=== PATIENT | female | born 1975 | race Caucasian/White ===

== ENCOUNTER → 2018-09-03 19:33 | Outpatient (REF) | payer OTHER, MEDICAID, SELFPAY | LOC: LAB 19:33 | PROVIDERS: Visit Provider Physician Assistant Medical | DX: D48.5 Neoplasm of uncertain behavior of skin (principal) | CPT/HCPCS: 88305 ==

== ENCOUNTER → 2020-07-27 12:54 | Outpatient (CLI) | payer OTHER, MEDICAID, SELFPAY ==
[2020-07-27 14:26] LABS: COVID19 -Nasal RAPID Negative (Negative)
== END ==
PROVIDERS: Visit Provider Family Medicine Sleep Medicine
DX: Z20.822 Contact with and (suspected) exposure to COVID-19 (principal)
CPT/HCPCS: 87635; C9803

== ENCOUNTER → 2020-08-03 14:21 | Outpatient (CLI) | payer OTHER, MEDICAID, SELFPAY ==
[2020-08-03 17:15] LABS: COVID19 -Nasal RAPID Negative (Negative)
== END ==
PROVIDERS: PCP Family Medicine; Visit Provider Family Medicine Sleep Medicine
DX: Z20.822 Contact with and (suspected) exposure to COVID-19 (principal)
CPT/HCPCS: 87635; C9803

== ENCOUNTER → 2023-05-09 14:54 | Outpatient (CLI) | payer OTHER, MEDICAID, SELFPAY ==
--- NOTE | 2023-05-09 | DI.MRI.S_ITS ---
PROCEDURE: MR HEAD/BRAIN WO/W CON INDICATIONS: Dizziness and giddiness TECHNIQUE: Noncontrast axial T1 spin echo, axial T2 fast spin echo, sagittal and axial FLAIR, coronal T2 fast spin echo, axial gradient echo, axial diffusion and ADC through the brain. After the administration of contrast, axial and coronal and sagittal 3D VIBE or T1 spin echo with fat saturation through the brain. COMPARISON: None. FINDINGS: Image quality: Excellent. CSF Spaces: Basal cisterns are patent. No extra-axial fluid collections. Ventricles are normal in size and shape. Brain: No midline shift. No intracranial bleeds or masses. No abnormal intracranial enhancement. The brainstem appears normal. Diffusion-weighted images demonstrate no acute ischemic insults. No chronic ischemic insults. Normal intravascular flow voids are present. Skull and face: Calvarial marrow is normal in signal. Orbits appear normal. Sinuses: Sinuses and mastoids appear clear. IMPRESSION: Normal MRI of the brain with and without contrast Approved by: Carlos Kowalski M.D. on 05/09/2023 at 16:42
== END ==
PROVIDERS: PCP Physician Assistant Medical; Referring Provider Physician Assistant Medical; Visit Provider Physician Assistant Medical
DX: H50 Other strabismus (principal); R42 Dizziness and giddiness
CPT/HCPCS: 70553

== ENCOUNTER → 2024-02-18 11:47 | Outpatient (CLI) | payer OTHER, SELFPAY ==
--- NOTE | 2024-02-18 11:49 | DI.MRI.S_ITS ---
PROCEDURE: MR CERVICAL SPINE WO CON INDICATIONS: HEADACHE / SPINAL STENOSIS TECHNIQUE: Noncontrast sagittal T1 spin echo and T2 fast spin echo, sagittal STIR, foraminal oblique sagittal T2 fast spin echo, and axial gradient echo or T2 fast spin echo through the cervical spine. COMPARISON: None. FINDINGS: Image quality: Excellent. Alignment and Curvature: There is normal bony alignment. Bone Marrow: Marrow demonstrates normal overall signal. Spinal Cord: Visualized spinal cord has normal size and signal. No cerebellar tonsillar herniation. Paraspinous Soft Tissues: No paravertebral masses. Prevertebral soft tissues are normal in thickness. C2-C3: No canal stenosis or foraminal stenosis. C3-C4: No canal stenosis or foraminal stenosis. C4-C5: Mild left facet hypertrophy. No canal stenosis. [id number] left foraminal stenosis. C5-C6: No canal stenosis. Mild left facet hypertrophy. Mild left foraminal narrowing. C6-C7: No canal stenosis or foraminal stenosis. Mild left facet hypertrophy. C7-T1: Normal appearance. IMPRESSION: 1. Mild cervical spondylosis with multilevel left facet arthropathy. 2. No canal stenosis. No foraminal nerve root impingement. Dictated by: Henrik Crisostomo M.D. on 02/18/2024 at 16:04 Approved by: Henrik Crisostomo M.D. on 02/18/2024 at 16:10
--- NOTE | 2024-02-18 11:49 | DI.MRI.S_ITS ---
PROCEDURE: MR HEAD/BRAIN WO/W CON INDICATIONS: HEADACHE / SPINAL STENOSIS TECHNIQUE: Noncontrast axial T1 spin echo, axial T2 fast spin echo, sagittal and axial FLAIR, coronal T2 fast spin echo, axial gradient echo, axial diffusion and ADC through the brain. After the administration of contrast, axial and coronal and sagittal 3D VIBE or T1 spin echo with fat saturation through the brain. COMPARISON: [facility], MR, MR HEAD/BRAIN WO/W CON, 05/09/2023, 15:44. FINDINGS: Image quality: Diagnostic, with note made of motion artifact. CSF Spaces: Basal cisterns are patent. No extra-axial fluid collections. Ventricles are normal in size and shape. Brain: No midline shift. No intracranial bleeds or masses. No abnormal intracranial enhancement. The brainstem appears normal. Diffusion-weighted images demonstrate no acute infarct. No chronic ischemic insults. Normal intravascular flow voids are present. Skull and face: Calvarial marrow is normal in signal. Orbits appear normal. Sinuses: Sinuses and mastoids appear clear. IMPRESSION: Normal brain MRI, stable from prior. No masses or abnormal enhancement can be seen. Dictated by: Blue Dockery M.D. on 02/18/2024 at 12:44 Approved by: Blue Dockery M.D. on 02/18/2024 at 12:45
== END ==
PROVIDERS: PCP Student in an Organized Health Care Education/Training Program; Referring Provider Psychiatry & Neurology Neurology; Visit Provider Psychiatry & Neurology Neurology
DX: M48.02 Spinal stenosis, cervical region; R51.9 Headache, unspecified; M47.812 Spondylosis without myelopathy or radiculopathy, cervical region
CPT/HCPCS: 70553; 72141; A9579

== ENCOUNTER → 2025-03-27 09:55 | Outpatient (CLI) | payer OTHER, SELFPAY ==
--- NOTE | 2025-03-27 09:56 | DI.MRI.S_ITS ---
PROCEDURE: MR CERVICAL SPINE WO CON INDICATIONS: Cervicalgia TECHNIQUE: Noncontrast sagittal T1 spin echo and T2 fast spin echo, sagittal STIR, foraminal oblique sagittal T2 fast spin echo, and axial gradient echo or T2 fast spin echo through the cervical spine. COMPARISON: [facility], MR, MR CERVICAL SPINE WO CON, 02/18/2024, 11:53. FINDINGS: Image quality: Excellent. Alignment and Curvature: There is normal bony alignment. Bone Marrow: Marrow demonstrates normal overall signal. Spinal Cord: Visualized spinal cord has normal size and signal. No cerebellar tonsillar herniation. Paraspinous Soft Tissues: No paravertebral masses. Prevertebral soft tissues are normal in thickness. C2-C3: No spinal canal or neural foraminal stenosis. C3-C4: No spinal canal or neural foraminal stenosis. C4-C5: Similar left [id number] neural foraminal stenosis due to uncovertebral greater than facet arthrosis. C5-C6: No spinal canal or neural foraminal stenosis. C6-C7: No spinal canal or neural foraminal stenosis. C7-T1: No spinal canal or neural foraminal stenosis. IMPRESSION: Similar mild to moderate neural foraminal stenosis on the left at C4-5. No significant spinal canal stenosis. Dictated by: Doug Brantley M.D. on 03/29/2025 at 9:40 Approved by: Doug Brantley M.D. on 03/29/2025 at 9:45
== END ==
LOC: MRI 09:55
PROVIDERS: PCP Nurse Practitioner Family; Referring Provider Acupuncturist; Visit Provider Acupuncturist
DX: M48.02 Spinal stenosis, cervical region (principal); M54.2 Cervicalgia
CPT/HCPCS: 72141